=== PATIENT | female | born 1995 | race Caucasian/White ===

== ENCOUNTER 2018-07-09 19:11 | Inpatient (IN) | payer OTHER, SELFPAY ==
[2018-07-09] MEDS ORDERED: NA CHLORIDE 0.9% 1,000 ML ONE (19:55)
[2018-07-09 20:20] LABS: Protime INR 1.03
[2018-07-09 20:21] LABS: Absolute Lymphocytes (CBC) 2.1 K/uL (0.7-4.9); Absolute Monocytes 0.6 K/uL (0.1-1.3); Absolute Neutrophil 7.1 K/uL (1.8-8.0); Basophils % 0.7 % (0-1.3); Eosinophils % 1.5 % (0-4.4); Hematocrit 41.8 % (36.0-45.0); MPV 9.4 fL (7.6-11.3); Monocytes % 5.8 % (3.3-12.3); RBC Red Blood Cell Count 4.79 M/uL (3.86-4.86)
[2018-07-09 20:23] LABS: Barbiturates NEGATIVE (NEGATIVE); Benzodiazepines NEGATIVE (NEGATIVE); Cocaine NEGATIVE (NEGATIVE); METHAMPHETAM NEGATIVE (NEGATIVE); Methadone NEGATIVE (NEGATIVE); Opiates NEGATIVE (NEGATIVE); Phencyclidine NEGATIVE (NEGATIVE); THC Cannibis NEGATIVE (NEGATIVE)
[2018-07-09 20:31] LABS: ALT/SGPT 79 U/L (12-78); AST/SGOT 33 U/L (15-37); Alkaline Phosphatase 66 U/L (45-117); BUN Blood Urea Nitrogen 9 mg/dL (7-18); Bicarbonate 24 mmol/L (21-32); Bilirubin Direct 0.1 mg/dL (0-0.2); Bilirubin Total 0.4 mg/dL (0.2-1.0); Glucose Level 93 mg/dL (74-106); Lipase 103 U/L (73-393); Magnesium 2.3 mg/dL (1.8-2.4); NT PRO-BNP 98 pg/mL (<125); Protein, Total 7.3 g/dL (6.4-8.2); Sodium Level 139 mmol/L (136-145); Troponin (Emerg Dept Use Only) < 0.02 ng/mL (0.0-0.045)
[2018-07-09] MEDS ORDERED: ONDANSETRON 4 MG/2 ML VIAL ONE ×3 (20:33→23:08)
[2018-07-09] MEDS ORDERED: MORPHINE 4 MG/ML SYR ONE ×3 (20:33→23:08)
[2018-07-09 21:05] LABS: Urine Blood NEGATIVE (NEG); Urine Glucose NEGATIVE (NEG); Urine Protein NEGATIVE (NEG)
--- NOTE | 2018-07-09 22:57 | ER ---
Nurse's Notes [facility] Name: Ferny Zaragoza Age: 23 yrs Sex: Female : 1995 Arrival Date: 07/09/2018 Time: 19:13 Bed 24 Private MD: Diagnosis: Cholecystitis;Cholelithiasis;Abdominal tenderness;Obesity, unspecified Presentation: 07/09 19:25 Presenting complaint: Patient states: chest pain, back pain, epigastric pain with N/V ak1 X1 week. 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 pt stated they told her the pain was due to not taking her zoloft for 4 days. pt started back on zoloft yesterday. Transition of care: patient was not received from another setting of care. Onset of symptoms is unknown. Risk Assessment: Do you want to hurt yourself or someone else? Patient reports no desire to harm self or others. Initial Sepsis Screen: Does the patient meet any 2 criteria? No. Patient's initial sepsis screen is negative. Does the patient have a suspected source of infection? No. Patient's initial sepsis screen is negative. Care prior to arrival: None. 19:25 Method Of Arrival: Ambulatory ak1 19:25 Acuity: WILMAR 3 ak1 Triage Assessment: 19:27 General: Appears in no apparent distress. Behavior is calm, cooperative. Pain: ak1 Complains of pain in back and chest. EENT: No signs and/or symptoms were reported regarding the EENT system. Neuro: No deficits noted. Cardiovascular: Reports chest pain, nausea. Respiratory: No deficits noted. GI: Reports nausea, vomiting. : No signs and/or symptoms were reported regarding the genitourinary system. Derm: No signs and/or symptoms reported regarding the dermatologic system. Musculoskeletal: No signs and/or symptoms reported regarding the musculoskeletal system. 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 pt with IUD in place ak1 Historical: - Allergies: 19:27 No Known Allergies; ak1 - Home Meds: 19:27 Zoloft Oral [Active]; Hydroxyzine Oral [Active]; ak1 - PMHx: 19:27 Depression; ak1 - PSHx: 19:27 eye sx; ak1 - Immunization history:: Adult Immunizations unknown. - Social history:: Smoking status: Patient uses tobacco products, denies chronic smoking, but will smoke occasionally. - Ebola Screening: : No symptoms or risks identified at this time. - Family history:: not pertinent. Screenin:29 Abuse screen: Denies threats or abuse. Nutritional screening: No deficits noted. ea Tuberculosis screening: No symptoms or risk factors identified. Fall Risk Assessment: 19:25 General: Appears uncomfortable, Behavior is calm, cooperative, appropriate for age. ea Pain: Complains of pain in mid-sternal area, epigastric Pain radiates to thoracic area Pain currently is 8 out of 10 on a pain scale. Pain began last Monday. Neuro: Level of Consciousness is awake, alert, obeys commands, Oriented to person, place, time. Cardiovascular: Heart tones S1 S2 present Patient's skin is warm and dry. Respiratory: Reports shortness of breath Airway is patent Respiratory effort is even, unlabored, Respiratory pattern is regular, symmetrical, Breath sounds are clear bilaterally. Derm: Skin is pink, warm \T\ dry. 19:44 Reassessment: Patient appears in no apparent distress at this time. No changes from ak1 previously documented assessment. pt eating cheetos. 20:00 Reassessment: Patient and/or family updated on plan of care and expected duration. Pain ea level reassessed. Patient is alert, oriented x 3, equal unlabored respirations, skin warm/dry/pink. 21:58 Reassessment: Patient and/or family updated on plan of care and expected duration. Pain ea level reassessed. Patient is alert, oriented x 3, equal unlabored respirations, skin warm/dry/pink. Vital Signs: 19:27 BP 127 / 75; Pulse 74; Resp 16; Temp 98.8(O); Pulse Ox 96% on R/A; Weight 104.33 kg ak1 (R); Height 5 ft. 3 in. (160.02 cm); Pain 8/10; 20:50 BP 130 / 80; Pulse 80; Resp 18; Pulse Ox 99% ; ea 22:58 BP 100 / 69; Pulse 70; Resp 18; Pulse Ox 96% on R/A; ea 19:27 Body Mass Index 40.74 (104.33 kg, 160.02 cm) ak1 ED Course: 19:13 Patient arrived in ED. ag3 19:17 Fay Martin, BETH is Primary Nurse. ea 19:19 Saúl Mendez MD is Attending Physician. martina 19:25 Initial lab(s) drawn, by me. Inserted saline lock: 20 gauge in right antecubital area, aa1 using aseptic technique. Blood collected. 19:26 Triage completed. ak1 19:27 Arm band placed on Patient placed in an exam room, on a stretcher, on pulse oximetry, ak1 Patient notified of wait time Emesis basin given. 19:30 Patient has correct armband on for positive identification. Placed in gown. Bed in low ak1 position. Call light in reach. Side rails up X 1. gis database administrator on. Pulse ox on. NIBP on. 19:30 Patient has correct armband on for positive identification. Bed in low position. Call ea light in reach. Side rails up X 1. gis database administrator on. Pulse ox on. NIBP on. 19:30 Patient maintains SpO2 saturation greater than 95% on room air. ak1 20:19 Note: us delayed due to pt refuse (not feeling well). waiting to receive pain meds. lc3 20:45 Note: pt still refuse us. says she cant lay on her back (to have gb scan) due to not lc3 feeling well. i will try again in 30 mins/lc. 21:45 XRAY Chest (1 view) In Process Unspecified. EDMS 21:48 Ultrasound completed. Patient tolerated well. Patient moved back from ultrasound. lc3 22:11 US Abdomen Limited In Process Unspecified. EDMS 22:55 Joseph Lim MD is Hospitalizing Provider. martina 23:11 No provider procedures requiring assistance completed. Patient admitted, IV remains in ea place. Administered Medications: 20:00 Drug: NS 0.9% 1000 ml Route: IV; Rate: 1 bolus; Site: right antecubital; ea 20:29 Drug: morphine 4 mg Route: IVP; Site: right antecubital; ea 21:23 Follow up: Response: Pain is unchanged, physician notified ak1 20:30 Drug: Zofran 4 mg Route: IVP; Site: right antecubital; ea 21:23 Follow up: Response: Pain is unchanged, physician notified ak1 21:21 Drug: morphine 4 mg Route: IVP; Site: right antecubital; ak1 23:00 Follow up: Response: No adverse reaction ea 21:23 Drug: Zofran 4 mg Route: IVP; Site: right antecubital; ak1 22:00 Follow up: Response: No adverse reaction; Pain is decreased ea 23:00 Drug: morphine 4 mg Route: IVP; Site: right antecubital; ea 23:10 Drug: Zosyn 3.375 grams Route: IVPB; Infused Over: 60 mins; Site: right antecubital; ea Outcome: 22:56 Decision to Hospitalize by Provider. martina 23:12 Admitted to ER Hold. Please see [facility] for further documentation. ea 23:12 Condition: stable 23:12 Instructed on the need for admit, Demonstrated understanding of instructions. 23:50 Admitted to 07/10 11:05 Admitted to Med/surg accompanied by tech, via wheelchair, room 207, with chart, Report ed1 called to Ofe Condition: stable Discharge instructions given to patient, Instructed on the need for admit, Demonstrated understanding of instructions. 11:07 Patient left the ED. ed1 Signatures: Dispatcher [employer] EDMS Gayle Yoder RN RN aa1 Saúl Mendez MD MD cha Riggs, Erika, INSTALLMENT DEALER INSTALLMENT DEALER ed1 Maria E Lee RN RN ak1 Rosie Ricardo Elena RN Wilfredo Díaz ea, RN BETH Pascale Flynn ag3
--- NOTE | 2018-07-09 22:57 | EDPHYS ---
Physician Documentation [facility] Name: Ferny Zaragoza Age: 23 yrs Sex: Female : 1995 Arrival Date: 07/09/2018 Time: 19:13 Bed 24 Private MD: ED Physician Saúl Mendez HPI: 07/09 19:43 This 23 yrs old Female presents to ER via Ambulatory with complaints of Chest martina Tightness. 19:43 The patient or guardian reports chest pain that is located primarily in the substernal martina area. The pain radiates to Associated signs and symptoms: The patient has no apparent associated signs or symptoms. The chest pain is described as squeezing. Severity of pain: At its worst the pain was mild moderate in the emergency department the pain is unchanged. The patient has experienced a previous episode, last week. 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 pt with IUD in place ak1 Historical: - Allergies: 19:27 No Known Allergies; ak1 - Home Meds: 19:27 Zoloft Oral [Active]; Hydroxyzine Oral [Active]; ak1 - PMHx: 19:27 Depression; ak1 - PSHx: 19:27 eye sx; ak1 - Immunization history:: Adult Immunizations unknown. - Social history:: Smoking status: Patient uses tobacco products, denies chronic smoking, but will smoke occasionally. - Ebola Screening: : No symptoms or risks identified at this time. - Family history:: not pertinent. ROS: 19:43 Constitutional: Negative for fever, chills, and weight loss, Eyes: Negative for injury, martina pain, redness, and discharge, ENT: Negative for injury, pain, and discharge, Neck: Negative for injury, pain, and swelling, Respiratory: Negative for shortness of breath, cough, wheezing, and pleuritic chest pain, Back: Negative for injury and pain, : Negative for injury, bleeding, discharge, and swelling, MS/Extremity: Negative for injury and deformity, Skin: Negative for injury, rash, and discoloration, Neuro: Negative for headache, weakness, numbness, tingling, and seizure, Psych: Negative for depression, anxiety, suicide ideation, homicidal ideation, and hallucinations, Allergy/Immunology: Negative for hives, rash, and allergies, Endocrine: Negative for neck swelling, polydipsia, polyuria, polyphagia, and marked weight changes, Hematologic/Lymphatic: Negative for swollen nodes, abnormal bleeding, and unusual bruising. 19:43 Cardiovascular: Positive for 19:43 Abdomen/GI: Positive for abdominal pain, nausea and vomiting. Exam: 19:43 Constitutional: This is a well developed, well nourished patient who is awake, alert, martina and in no acute distress. Head/Face: Normocephalic, atraumatic. Eyes: Pupils equal round and reactive to light, extra-ocular motions intact. Lids and lashes normal. Conjunctiva and sclera are non-icteric and not injected. Cornea within normal limits. Periorbital areas with no swelling, redness, or edema. ENT: Nares patent. No nasal discharge, no septal abnormalities noted. Tympanic membranes are normal and external auditory canals are clear. Oropharynx with no redness, swelling, or masses, exudates, or evidence of obstruction, uvula midline. Mucous membranes moist. Neck: Trachea midline, no thyromegaly or masses palpated, and no cervical lymphadenopathy. Supple, full range of motion without nuchal rigidity, or vertebral point tenderness. No Meningismus. Chest/axilla: Normal chest wall appearance and motion. Nontender with no deformity. No lesions are appreciated. Cardiovascular: Regular rate and rhythm with a normal S1 and S2. No gallops, murmurs, or rubs. Normal PMI, no JVD. No pulse deficits. Respiratory: Lungs have equal breath sounds bilaterally, clear to auscultation and percussion. No rales, rhonchi or wheezes noted. No increased work of breathing, no retractions or nasal flaring. Back: No spinal tenderness. No costovertebral tenderness. Full range of motion. Female : Normal external genitalia. Skin: Warm, dry with normal turgor. Normal color with no rashes, no lesions, and no evidence of cellulitis. MS/ Extremity: Pulses equal, no cyanosis. Neurovascular intact. Full, normal range of motion. Neuro: Awake and alert, GCS 15, oriented to person, place, time, and situation. Cranial nerves II-XII grossly intact. Motor strength 5/5 in all extremities. Sensory grossly intact. Cerebellar exam normal. Normal gait. Psych: Awake, alert, with orientation to person, place and time. Behavior, mood, and affect are within normal limits. 19:43 Abdomen/GI: Inspection: distension, Bowel sounds: normal, Palpation: moderate abdominal tenderness, in the epigastric area, right upper quadrant and left upper quadrant, Liver: no appreciated palpable abnormalities, Hernia: not appreciated. 19:52 Musculoskeletal/extremity: DVT Exam: No signs of deep vein thrombosis. no pain, no martina swelling, no tenderness, negative Homans' sign noted on exam, no appreciated bluish discoloration, no erythema, no increased warmth. Vital Signs: 19:27 BP 127 / 75; Pulse 74; Resp 16; Temp 98.8(O); Pulse Ox 96% on R/A; Weight 104.33 kg ak1 (R); Height 5 ft. 3 in. (160.02 cm); Pain 8/10; 20:50 BP 130 / 80; Pulse 80; Resp 18; Pulse Ox 99% ; ea 22:58 BP 100 / 69; Pulse 70; Resp 18; Pulse Ox 96% on R/A; ea 19:27 Body Mass Index 40.74 (104.33 kg, 160.02 cm) ak MDM: 19:[address] [facility] 19:45 Data reviewed: vital signs, nurses notes, lab test result(s), EKG, radiologic studies, [facility] CT scan, plain films. 07/09 19:43 Order name: Basic Metabolic Panel; Complete Time: 20:[address] [facility] 07/09 19:43 Order name: CBC with Diff; Complete Time: 20:[address] [facility] 07/09 19:43 Order name: LFT's; Complete Time: 20:[address] [facility] 07/09 19:43 Order name: Magnesium; Complete Time: 20:[address] [facility] 07/09 19:43 Order name: NT PRO-BNP; Complete Time: 20:[address] [facility] 07/09 19:43 Order name: PT-INR; Complete Time: 20:[address] [facility] 07/09 19:43 Order name: Troponin (emerg Dept Use Only); Complete Time: 20:[address] [facility] 07/09 19:43 Order name: Urine Culture [facility] 07/09 19:43 Order name: UDS; Complete Time: 20:[address] [facility] 07/09 19:59 Order name: Urine Dipstick--Ancillary (enter results); Complete Time: 21:43 fl 07/09 20:00 Order name: Urine --Ancillary (enter results) fl 07/09 20:08 Order name: Lipase; Complete Time: 20:54 EDDE 07/09 23:01 Order name: Basic Metabolic Panel EDDE 07/09 19:43 Order name: XRAY Chest (1 view); Complete Time: 07:[address] [facility] 07/09 19:43 Order name: US Abdomen Limited; Complete Time: 07:[address] [facility] 07/09 23:01 Order name: Basic Metabolic Panel; Complete Time: 07:30 EDDE 07/09 23:01 Order name: CBC with Automated Diff EDMS 07/09 23:01 Order name: CBC with Automated Diff; Complete Time: 07:30 EDMS 07/09 23:01 Order name: Lipase EDMS 07/09 23:01 Order name: Lipase; Complete Time: 07:30 EDDE 07/09 23:01 Order name: Liver (Hepatic) Function EDMS 07/09 23:01 Order name: Liver (Hepatic) Function; Complete Time: 07:30 [facility] 07/10 10:13 Order name: MRI EDDE 07/09 19:43 Order name: EKG; Complete Time: 19:[address] [facility] 07/09 19:43 Order name: Cardiac monitoring; Complete Time: 19:[address] [facility] 07/09 19:43 Order name: EKG - Nurse/Tech; Complete Time: 19:[address] [facility] 07/09 19:43 Order name: IV Saline Lock; Complete Time: 19:[address] [facility] 07/09 19:43 Order name: Labs collected and sent; Complete Time: 19:[address] [facility] 07/09 19:43 Order name: O2 Per Protocol; Complete Time: 19:[address] [facility] 07/09 19:43 Order name: O2 Sat Monitoring; Complete Time: 19:[address] [facility] 07/09 19:43 Order name: Urine Test (obtain specimen); Complete Time: 20:[address] [facility] 07/09 23:01 Order name: NPO EDMS Administered Medications: 20:00 Drug: NS 0.9% 1000 ml Route: IV; Rate: 1 bolus; Site: right antecubital; ea 20:29 Drug: morphine 4 mg Route: IVP; Site: right antecubital; ea 21:23 Follow up: Response: Pain is unchanged, physician notified ak1 20:30 Drug: Zofran 4 mg Route: IVP; Site: right antecubital; ea 21:23 Follow up: Response: Pain is unchanged, physician notified ak1 21:21 Drug: morphine 4 mg Route: IVP; Site: right antecubital; ak1 23:00 Follow up: Response: No adverse reaction ea 21:23 Drug: Zofran 4 mg Route: IVP; Site: right antecubital; ak1 22:00 Follow up: Response: No adverse reaction; Pain is decreased ea 23:00 Drug: morphine 4 mg Route: IVP; Site: right antecubital; ea 23:10 Drug: Zosyn 3.375 grams Route: IVPB; Infused Over: 60 mins; Site: right antecubital; ea Disposition: 07/09/18 22:56 Hospitalization ordered by Joseph Lim for Observation. Preliminary diagnosis are Cholecystitis, Cholelithiasis, Abdominal tenderness, Obesity, unspecified. - Bed requested for Telemetry/MedSurg (observation). - Status is Observation. ed1 - Condition is Stable. - Problem is new. - Symptoms have improved. UTI on Admission? No Signatures: Dispatcher [employer] EDDE Trice De Los Santos RN RN mw Woody, Diana, RN RN dw Anderson, Corey, MD MD cha Riggs, Erika, SEMIAUTOMATIC TAPER OPERATOR SEMIAUTOMATIC TAPER OPERATOR ed1 Maria E Lee RN BETH ak Fay Martin RN RN ea Corrections: (The following items were deleted from the chart) 20:08 19:45 LIPASE+C.LAB.BRZ ordered. [facility] EDMS 22:59 22:56 Hospitalization Ordered by Joseph Lim MD for Observation. Preliminary diagnosis is Cholecystitis; Cholelithiasis; Abdominal tenderness. Bed requested for Telemetry/MedSurg (observation). Status is Observation. Condition is Stable. Problem is new. Symptoms have improved. UTI on Admission? No. martina 23:01 22:59 07/09/2018 22:56 Hospitalization Ordered by Joseph Lim MD for Observation. martina Preliminary diagnosis is Cholecystitis; Cholelithiasis; Abdominal tenderness. Bed requested for [facility] ER HOLD. Status is Observation. Condition is Stable. Problem is new. Symptoms have improved. UTI on Admission? No. juan 07/10 10:21 12 23:01 07/09/2018 22:56 Hospitalization Ordered by Joseph Lim MD for dw Observation. Preliminary diagnosis is Cholecystitis; Cholelithiasis; Abdominal tenderness; Obesity, unspecified. Bed requested for Telemetry/MedSurg (observation). Status is Observation. Condition is Stable. Problem is new. Symptoms have improved. UTI on Admission? No. martina 07/10 11:07 10:21 07/09/2018 22:56 Hospitalization Ordered by Joseph Lim MD for Observation. ed1 Preliminary diagnosis is Cholecystitis; Cholelithiasis; Abdominal tenderness; Obesity, unspecified. Bed requested for Telemetry/MedSurg (observation). Status is Observation. Condition is Stable. Problem is new. Symptoms have improved. UTI on Admission? No. dw
[2018-07-09] MEDS: D5 0.45 NS 1,000 ML IV SCH (23:00)
[2018-07-09] MEDS ORDERED: PIPER/TAZO/NS 3.375gm 3.375 GM/100 ML BAG ONE (23:08)
[2018-07-09 23:50] VITALS: BMI 40.7
[2018-07-10] MEDS ORDERED: D5 0.45 NS 1,000 ML IV ONE ×2 (00:26→07:51)
[2018-07-10] MEDS: ONDANSETRON 4 MG/2 ML VIAL IV PRN ×4 (01:05→21:51)
[2018-07-10] MEDS ORDERED: ONDANSETRON 4 MG/2 ML VIAL ONE ×2 (01:09→08:12)
[2018-07-10] MEDS ORDERED: MORPHINE 4 MG/ML SYR ONE (02:47)
[2018-07-10] MEDS: MORPHINE 4 MG/ML SYR IV PRN ×3 (02:51→21:45)
--- NOTE | 2018-07-10 05:46 | EKG ---
Test Date: 2018-07-09 Test Time: 19:21:31 Chronic Disease Manager: PEREZ MEASUREMENT RESULTS: Intervals: Rate: 77 DE: 140 QRSD: 92 QT: 376 QTc: 425 [place]: P: 37 DE: 140 QRS: -5 T: 33 INTERPRETIVE STATEMENTS: Normal sinus rhythm with sinus arrhythmia Normal ECG No previous ECG available for comparison Electronically Signed On 07-10-18 05:45:37 REPAIR OPERATOR by Shravan Garcia
[2018-07-10] MEDS: PIPER/TAZO/NS 3.375gm 3.375 GM/100 ML BAG IVPB SCH ×3 (06:00→18:40)
[2018-07-10 06:19] LABS: Absolute Lymphocytes (CBC) 1.2 K/uL (0.7-4.9); Absolute Monocytes 0.4 K/uL (0.1-1.3); Absolute Neutrophil 4.9 K/uL (1.8-8.0); Basophils % 0.4 % (0-1.3); Eosinophils % 0.7 % (0-4.4); Hematocrit 36.7 % (36.0-45.0); Lymphocytes % 17.7 % (15.3-44.8); MPV 9.4 fL (7.6-11.3); Monocytes % 5.9 % (3.3-12.3); RBC Red Blood Cell Count 4.23 M/uL (3.86-4.86)
[2018-07-10 06:26] LABS: ALT/SGPT 164 U/L (12-78); AST/SGOT 132 U/L (15-37); Albumin 3.5 g/dL (3.4-5.0); Alkaline Phosphatase 99 U/L (45-117); BUN Blood Urea Nitrogen 7 mg/dL (7-18); Bicarbonate 28 mmol/L (21-32); Bilirubin Direct 0.4 mg/dL (0-0.2); Bilirubin Total 0.8 mg/dL (0.2-1.0); Glucose Level 120 mg/dL (74-106); Lipase 56 U/L (73-393); Potassium 3.9 mmol/L (3.5-5.1); Protein, Total 6.6 g/dL (6.4-8.2); Sodium Level 138 mmol/L (136-145)
[2018-07-10] MEDS ORDERED: PIPER/TAZO/NS 3.375gm 3.375 GM/100 ML BAG ONE (06:51)
[2018-07-10] MEDS: D5 0.45 NS 1,000 ML IV SCH ×4 (07:00→23:00)
--- NOTE | 2018-07-10 07:16 | RAD REPORT ---
EXAM DESCRIPTION: RAD - Chest Single View - 07/09/2018 9:45 pm CLINICAL HISTORY: Back pain, chest pain COMPARISON: December 2011 TECHNIQUE: AP portable chest image was obtained 2115 hours . FINDINGS: Lungs are clear. Heart and vasculature are normal. No measurable pleural effusion and no p neumothorax. No acute bony abnormality seen. No acute aortic findings suspected. IMPRESSION: No acute cardiopulmonary process. No suspicious interval change.
--- NOTE | 2018-07-10 07:16 | RAD REPORT ---
EXAM DESCRIPTION: US - Abdomen Exam Limited - 07/09/2018 10:11 pm CLINICAL HISTORY: Abdominal pain, right upper quadrant pain Preliminary findings provided at the time of the study. COMPARISON: None. FINDINGS: Gallbladder is distended but not grossly dilated. A single large 2.4 centimeter mobile gal lstone is identified. Gallbladder wall is upper normal to slightly thickened. No pericholecystic flui d seen. Patient did express pain symptoms with transducer pressure over the right upper quadrant. No duct stone identifiable. No intrahepatic dilatation seen. Common bile duct is upper normal at 7 to 8 mm IMPRESSION: Distended gallbladder with single mobile 2.4 cm gallstone. Gallbladder wall is upper normal to slightly thickened without pericholecystic fluid. Upper normal biliary tree without duct stone identifiable.
[2018-07-10] MEDS ORDERED: NA CHLORIDE 0.9% 1,000 ML IV ONE (07:44)
[2018-07-10] MEDS ORDERED: NA CHLORIDE 0.9% 1,000 ML ONE (07:50)
[2018-07-10] MEDS: ACETAMINOPHEN 500 MG TAB PO PRN ×2 (08:10→15:38)
[2018-07-10] MEDS ORDERED: ACETAMINOPHEN 325 MG TABLET ONE (08:11)
[2018-07-10] MEDS ORDERED: FAMOTIDINE 20 MG/2 ML VIAL IV ONE (08:11)
[2018-07-10] MEDS: FAMOTIDINE 20 MG/2 ML VIAL IV SCH ×2 (08:11→20:11)
--- NOTE | 2018-07-10 10:11 | RAD REPORT ---
EXAM DESCRIPTION: MRI - Cholangiogram - 07/10/2018 9:38 am CLINICAL HISTORY: Cholelithiasis, abdominal pain COMPARISON: Gallbladder ultrasound same date TECHNIQUE: Axial and coronal heavily T2 weighted sequences were obtained. Coronal T2 HASTE fat satur ation static and coronal multiplane reconstruction imaging generated and reviewed. Horizontal and raheem tical axis rotational views obtained using maximum intensity projection (MIP) protocol. FINDINGS: Gallbladder is distended. There may be some pericholecystic fluid present. There is motion that limits full gallbladder assessment. Prior ultrasound demonstrated a large mobile gallstone. On MRCP imaging there is an additional gallstone 2.2 cm in size that is fixed at the neck of the gallbla dder. No biliary tree dilatation or duct stone seen. The distended gallbladder and neck gallstone create ex trinsic compression on the common hepatic duct. IMPRESSION: MRCP imaging demonstrates an additional gallstone not seen at earlier sonography. This 2 .2 centimeter stone is fixed at the neck. There is extrinsic impression on the common hepatic duct due to the distended gallbladder and neck st one. No biliary tree dilatation or duct stone present.
[2018-07-10] MEDS ORDERED: KETOROLAC 30 MG/ML INJ IV ONE (10:21)
[2018-07-10] MEDS ORDERED: KETOROLAC 30 MG/ML INJ ONE (10:34)
[2018-07-10] MEDS ORDERED: PIPER/TAZO/NS 3.375gm 3.375 GM/100 ML BAG IVPB SCH (17:00)
--- NOTE | 2018-07-10 23:51 | HP ---
Date of Admission: 07/09/2018 Consultants: GI, Dr. Galo; General Surgery, Dr. Lim. Chief Complaint: Right upper quadrant abdominal pain. History Of Present Illness: The patient is a 23-year-old female with past medical history of general ized anxiety disorder, who was in her usual state of health until the day prior to admission when the patient had sudden onset of abdominal pain which was in the epigastric and right upper quadrant area , radiating to her back, associated with some nausea. No vomiting. The patient denies any shortness of breath, chest pain, fever, chills, or any unusual foods. The patient's symptoms are worse with f ried, fatty foods. The patient came into the ER for further evaluation. Upon arrival, her workup re veals a normal WBC count. The patient's urine drug screen was negative. UA showed negative pregnanc y test. Imaging studies including ultrasound of the abdomen showed gallstones and distended gallblad dixon with mobile 2.4-cm gallstone, common bile duct was upper normal to 78 mm, upper normal biliary tr ee, biliary tree without duct stone identifiable. The patient was then referred for admission. When seen in the ER, the patient was awake, alert, and oriented x3, in some mild pain. Past Medical History: Generalized anxiety disorder and depression. Past Surgical History: Eye surgery secondary to trauma at 2 years of age, x3. Allergies: NO KNOWN DRUG ALLERGIES. Medications: Zoloft and hydroxyzine. Social History: The patient smokes cigarettes occasionally. No alcohol use or illicit drug use. Family History: The patient denies any history of gallbladder disease in her family. Review of Systems: An 11-point system reviewed, negative except as per HPI. Physical Examination: Vital Signs: Blood pressure 127/75, pulse 74, respirations 16, temperature 98.8, and O2 96% on room air. General: Awake, alert, and oriented x3, in mild distress. Morbidly obese female. HEENT: Normocephalic, atraumatic. PERRLA. EOMI. Moist mucous membranes. Oropharynx is clear. Co njunctivae anicteric. Neck: Supple. No JVD. Trachea midline. CV: S1, S2. Regular rate and rhythm. No murmurs or gallops. Peripheral pulses present. Respiratory: Clear to auscultation bilaterally. No wheezing or stridor or use of accessory muscles. Gastrointestinal: Abdomen is soft. Tenderness to palpation of the right upper quadrant. No rebound or guarding. Bowel sounds positive. No distention. Extremities: No clubbing, cyanosis, or edema. No calf tenderness. Neuro: Cranial nerves 2 through 12 intact grossly. No focal neurological deficit. Speech is normal . Strength is 5/5 in bilateral upper and lower extremities. Sensation is intact to light touch. Skin: No rashes. Normal skin turgor. Psych: Mood is somewhat anxious. Affect is congruent with mood. Insight and judgment are good. Laboratory Data: UA is negative. test is also negative. UDS is negative. Sodium 138, po tassium 3.9, chloride 106, CO2 28, BUN 7, creatinine 0.6, glucose 120, and calcium 8.3. AST 132, ALT 164, total bilirubin 0.8, alkaline phosphatase 99, and lipase 56. INR 1.03. WBC 6.6, H and H 12.4 and 36.7, platelets 199, and neutrophils 75%. MRCP shows additional gallstones not seen at earlier s onography. This 2.2-cm stone is fixed at the neck. There is extrinsic compression on the common hep atic duct due to the distended gallbladder neck stone, no biliary tree dilatation or duct stone prese nt. Abdominal ultrasound shows distended gallbladder with single mobile 2.4-cm gallstone, gallbladde r wall upper normal to slightly thickened without pericholecystic fluid, and upper normal biliary sonia e without duct stone identifiable. Assessment And Plan: A 23-year-old female with: 1.Right upper quadrant abdominal pain, likely secondary to gallstones. Continue with pain control, likely secondary to cholelithiasis. MRCP is negative. 2.Cholelithiasis without obstruction. We will continue with current treatment. MRCP does not show any ductal stones. There is a fixed stone at the neck. Appreciate Dr. Galo's input. The patient will likely need a cholecystectomy. I will reach out to Dr. Lim. This will likely be done in t he a.m. 3.Morbid obesity, counseled. 4.Generalized anxiety disorder, stable. 5.Major depressive disorder, on SSRI, stable. Admit the patient to Med-Surg, place as observation. Anticipate surgery in the a.m. Of note, the concepcion wade was initially admitted to the Surgery Service, but due to her condition, she was switched over to The Hospitalist Service and was referred for admission this morning. ANEUDY Voice ID: [id number]
[2018-07-11] MEDS ORDERED: KETOROLAC 30 MG/ML INJ IV ONE (00:10)
[2018-07-11] MEDS: PIPER/TAZO/NS 3.375gm 3.375 GM/100 ML BAG IVPB SCH ×3 (00:31→16:38)
[2018-07-11] MEDS: D5 0.45 NS 1,000 ML IV SCH ×3 (06:37→16:38)
[2018-07-11] MEDS: MORPHINE 4 MG/ML SYR IV PRN (06:56)
[2018-07-11] MEDS: FAMOTIDINE 20 MG/2 ML VIAL IV SCH ×2 (08:27→20:32)
[2018-07-11] MEDS ORDERED: PROPOFOL 200 MG/20 ML VIAL IV ONE (08:38)
[2018-07-11] MEDS ORDERED: FENTANYL CITR 100 MCG/2 ML ONE ×2 (08:38→10:13)
[2018-07-11] MEDS ORDERED: MIDAZOLAM HCL 2 MG/2 ML INJ ONE (08:38)
[2018-07-11] MEDS ORDERED: ROCURONIUM 50 MG/5 ML VIAL IV ONE (08:39)
[2018-07-11] MEDS ORDERED: LIDOCAINE 1% MPF 5 ML VIAL ONE (08:39)
[2018-07-11] MEDS ORDERED: Ringers Lactate 1,000 ML IV ONE ×2 (09:27→11:51)
[2018-07-11] MEDS ORDERED: KETOROLAC 30 MG/ML INJ ONE (10:10)
[2018-07-11] MEDS ORDERED: DEXAMETHASONE 10 MG/ML VIAL ONE (10:10)
[2018-07-11] MEDS ORDERED: GLYCOPYRROLATE 0.2 MG/ML SYR ONE (10:10)
[2018-07-11] MEDS ORDERED: NEOSTIGMINE 1 MG/ML -5 ML SYRINGE ONE (10:10)
[2018-07-11] MEDS ORDERED: ONDANSETRON 4 MG/2 ML VIAL ONE (10:11)
--- NOTE | 2018-07-11 10:53 | P.BOP ---
Preoperative diagnosis: acute cholecystitis, symptomatic cholelithiasis, morbid obesity Postoperative diagnosis: same Primary procedure: Laparoscopic cholecystectomy Estimated blood loss: <30cc Specimen: gb Findings: acute cholecystitis, GB wall thickening and distended. Anesthesia: General Complications: None Transferred to: Recovery Room Condition: Good
[2018-07-11] MEDS ORDERED: MORPHINE 4 MG/ML SYR ONE (11:21)
--- NOTE | 2018-07-11 11:49 | CON ---
Date of Consultation: 07/10/2018 This patient was seen in the ER. History Of Present Illness: This is the case of a 23-year-old patient, comes with at least a day his tory of epigastric upper quadrant pain radiating to the back associated with nausea and vomiting. Th e patient states this happened after she ate some fried food. Apparently, she went to another ER rec ently in another institution. They sent her home with no medications and the patient was sent home a nd then the patient comes to our ER complaining of the same symptoms. Workup revealed a possible gal lbladder and a surgical consult was obtained. Past Medical History: Anxiety and depression. Past Surgical History: Include x3 and eye surgery when she was a baby. Allergies: NONE. Medications: Zoloft. Social History: She smokes occasionally. She does not drink alcohol. Family History: Noncontributory. Review of Systems: Eleven points, otherwise unremarkable. Physical Examination: General: The patient is awake and alert. HEENT: Pupils are equal and reactive, anicteric. Neck: Supple. Chest: Clear. Bilateral breath sounds. Abdomen: Epigastric or upper quadrant tenderness with Phan sign positive. The rest of abdomen is soft and depressible. Breasts: Deferred. Pelvic: Deferred. Rectal: Deferred. Extremities: Good capillary refill. Laboratory Data: Blood work shows WBC count of 10.9, hemoglobin 13.9, platelets of 222, potassium is 4.0, total bilirubin of 0.4, direct bilirubin of 0.1. Alkaline phosphorus of 66. Lipase 103. UA n egative. Abdominal ultrasound interpreted by Dr. Glass as a gallstone, thickening of the gallbladd er, borderline common bile duct size. Assessment And Plan: A 23-year-old patient with symptomatic cholelithiasis, acute cholecystitis. In itially comes in with anxiety and borderline biliary system. The patient will be n.p.o. We are david g to get an MRCP. If the MRCP is positive, GI may have to do an ERCP. If not, the patient will be f ully explained the options also of laparoscopic, possible open cholecystectomy with benefits, alterna tives, and risks, including, but not limited to infection, bleeding, damage to adjacent structures, a nesthesia complication, recurrence, SD, and even . She also understands this may not relieve an y symptoms. She may need more than one surgical intervention. She understands the importance also o f losing weight, look for professional help to do so. She understood. She will be admitted to the [facility]. RADHA/ASHLEY Voice ID: [id number] Report ID: [id number]
--- NOTE | 2018-07-11 13:40 | PN ---
Date of Progress Note: 07/11/2018 Subjective: Patient seen and examined. Chart reviewed and case discussed with RN and Dr. Lim. The patient went down for a laparoscopic cholecystectomy and tolerated the procedure well. She did have significant amount of inflammation and distention of the gallbladder, which was fairly enlarged. Medications: List reviewed. Physical Examination: Vital Signs: Temperature 98.4, heart rate 99, blood pressure 100/65, respirations 20, O2 100% on susannah m air. General: Awake, alert, oriented x3. Has some mild distress, ill-appearing, morbidly obese female. CV: S1, S2. Regular rate and rhythm. Peripheral pulses present. Respiratory: Moving air well bilaterally. No wheezing or stridor. No use of accessory muscles. Gastrointestinal: Abdomen is soft. Tenderness to palpation in the right upper quadrant. Bowel soun ds positive. No guarding or rigidity. Extremities: No clubbing, cyanosis, or edema. Neurologic: Nonfocal. Laboratory Data: Labs pending. Urine culture showing mixed izzy. Assessment: A 23-year-old female with: 1.Right upper quadrant abdominal pain secondary to acute cholecystitis with cholelithiasis with chol elithiasis. MRCP negative. The patient going for laparoscopic cholecystectomy today. 2.Acute cholecystitis with cholelithiasis without obstruction. Laparoscopic cholecystectomy today. Appreciate Dr. Lim' input. We will continue antibiotics and pain control. 3.Morbid obesity. BMI greater than 40. Counseled. 4.Generalized anxiety disorder, stable. 5.Major depressive disorder on SSRI, stable. Plan: We will continue to observe the patient. Pain control. Continue with IV antibiotics. Length Of Stay: Greater than 2 midnights. Disposition: Likely discharge in the next 24 to 48 hours depending on clinical response. /ASHLEY Voice ID: [id number] Report ID: [id number]
[2018-07-11] MEDS: HYDROCODONE/APAP 7.5/325 MG TAB PO PRN ×2 (16:37→20:32)
[2018-07-11] MEDS ORDERED: PIPER/TAZO/NS 3.375gm 3.375 GM/100 ML BAG IVPB SCH (17:30)
[2018-07-12] MEDS: PIPER/TAZO/NS 3.375gm 3.375 GM/100 ML BAG IVPB SCH ×2 (00:58→08:16)
[2018-07-12] MEDS: HYDROCODONE/APAP 7.5/325 MG TAB PO PRN ×3 (00:58→11:04)
[2018-07-12] MEDS: D5 0.45 NS 1,000 ML IV SCH (05:55)
[2018-07-12 06:20] LABS: Absolute Lymphocytes (CBC) 1.7 K/uL (0.7-4.9); Absolute Monocytes 0.8 K/uL (0.1-1.3); Absolute Neutrophil 5.5 K/uL (1.8-8.0); Basophils % 0.4 % (0-1.3); Eosinophils % 0.4 % (0-4.4); Hematocrit 32.6 % (36.0-45.0); Lymphocytes % 20.6 % (15.3-44.8); MPV 9.3 fL (7.6-11.3); Monocytes % 9.8 % (3.3-12.3); RBC Red Blood Cell Count 3.77 M/uL (3.86-4.86)
[2018-07-12 06:37] LABS: ALT/SGPT 69 U/L (12-78); AST/SGOT 19 U/L (15-37); Albumin 2.9 g/dL (3.4-5.0); Alkaline Phosphatase 82 U/L (45-117); BUN Blood Urea Nitrogen 3 mg/dL (7-18); Bicarbonate 25 mmol/L (21-32); Bilirubin Total 0.6 mg/dL (0.2-1.0); Glucose Level 105 mg/dL (74-106); Potassium 3.5 mmol/L (3.5-5.1); Protein, Total 6.2 g/dL (6.4-8.2); Sodium Level 140 mmol/L (136-145)
[2018-07-12] MEDS: FAMOTIDINE 20 MG/2 ML VIAL IV SCH (08:17)
[2018-07-12 08:51] VITALS: BP 94/56; TEMP 97.4
--- NOTE | 2018-07-12 12:18 | P.PN ---
Subjective Date of Service: 07/12/18 Chief Complaint: SHARON pain, N/V, cholelithiasis / cholecystitis Subjective: Improving (Feels better. Sitting in bed tolerating solid food. No complaints.) Review of Systems Unremarkable Physical Examination - Vital Signs Temperature: 97.4 F Blood Pressure: 94/56 Pulse: 85 Respirations: 18 Pulse Ox (%): 95 - Physical Exam General: Alert, In no apparent distress, Oriented x3, Cooperative HEENT: Atraumatic, Normocephalic, PERRLA, EOMI, Sclerae nonicteric Neck: Supple Respiratory: Normal air movement Cardiovascular: Normal pulses Gastrointestinal: No rebound, No guarding, Tenderness (post-op tenderness) Neurological: Normal speech, Normal strength at 5/5 x4 extr - Studies Microbiology Data (last 24 hrs): 07/09/18 19:50 Clean Catch Urine [place] Count - Final BETWEEN 10,000 & 100,000 CFU/ML 07/09/18 19:50 Clean Catch Urine - Final Assessment And Plan - Current Problems (Diagnosis) (1) Epigastric abdominal pain Current Visit: Yes Status: Acute Comment: Improved s/p lap bessie (2) Nausea & vomiting Current Visit: Yes Status: Acute (3) Cholelithiasis with cholecystitis Current Visit: Yes Status: Acute - Plan REC: 1) diet as per surgery 2) GI clinic f/u prn
--- NOTE | 2018-07-12 12:56 | P.PN ---
Subjective Date of Service: 07/12/18 Chief Complaint: SHARON pain, N/V, cholelithiasis / cholecystitis Subjective: Tolerating diet, Ambulating, Improving Review of Systems 10-point ROS is otherwise unremarkable Physical Examination - Vital Signs Temperature: 97.4 F Blood Pressure: 94/56 Pulse: 85 Respirations: 18 Pulse Ox (%): 95 - Physical Exam General: Alert, Oriented x3, Cooperative HEENT: PERRLA, EOMI, Sclerae nonicteric Neck: Supple Gastrointestinal: Soft and benign Neurological: Normal speech - Studies Microbiology Data (last 24 hrs): 07/09/18 19:50 Clean Catch Urine [place] Count - Final BETWEEN 10,000 & 100,000 CFU/ML 07/09/18 19:50 Clean Catch Urine - Final Assessment And Plan - Plan SEE orders d?h f/u 1 week
[2018-07-12 13:21] VITALS: O2SAT 95
--- NOTE | 2018-07-13 07:42 | DS ---
Date of Discharge: 07/12/2018 Consultants: Dr. Lim with General Surgery, Dr. Galo with GI. Procedures: On 06/11/2018, laparoscopic cholecystectomy. Pathology shows reactive pericystic duct l ymph node, acute on chronic cholecystitis, cholelithiasis. Discharge Diagnoses: 1.Acute cholecystitis with cholelithiasis, without obstruction, status post laparoscopic cholecystec kiara. 2.Right upper quadrant abdominal pain, resolved, secondary to above. 3.Morbid obesity. Body mass index 40.7. 4.Generalized anxiety disorder, stable. 5.Major depressive disorder, in remission on selective serotonin reuptake inhibitors, stable. 6.Elevated liver enzymes, secondary to acute cholecystitis, normalized. Hospital Course: The patient is a 23-year-old female with past medical history of generalized anxiet y, depression, morbid obesity, who comes in with right upper quadrant abdominal pain. The patient wa s found to have acute cholecystitis. She did have some elevation in her liver enzymes. She was star rm on IV antibiotic and pain medications. Dr. Lim and Dr. Galo, with General Surgery and GI respectively, were consulted. MRCP was done to rule out any duct stone, did not show any duct in the common bile duct. The patient did not require ERCP. She was taken for cholecystectomy by Dr. Leny tariq. The patient did well postoperatively. She was able to tolerate her diet. Her pain had resolve d. She was instructed on fat-soluble vitamin supplementation and changes in her dietary habits after cholecystectomy; she voiced understanding. The patient was then cleared for discharge from consulta nt's standpoint. She was tolerating her diet and pain was well controlled. She was able to ambulate without any difficulty. The patient was then discharged home in stable condition. Activity: As tolerated. No operating heavy machinery or driving while on narcotics. No lifting mor e than 10 pounds. Diet: [place] diet, calorie-restricted diet. No fried or fatty foods. Supplement with fat-soluble vi tamins; K, A, D, and E. Wound care instructions per Surgery. Followup: With surgeon, Dr. Lim, in 7-10 days. Medications: As per medication reconciliation list. Finish off the course of Augmentin. Physical Examination: General: Awake, alert, oriented, no acute distress, morbidly obese female. CV: S1, S2. No murmurs. Respiratory: Moving air well bilaterally. No wheezing. Gastrointestinal: Abdomen is soft. Mild tenderness to palpation around the incision site. Otherwis e, nondistended. Positive bowel sounds. Extremities: No clubbing, cyanosis, or edema. Neurologic: Nonfocal. Total Time Spent Discharging The Patient: 39 minutes. /ASHLEY Voice ID: [id number] Report ID: [id number]
--- NOTE | 2018-08-27 22:51 | OP ---
Date of Procedure: 07/11/2018 Surgeon: Joseph Lim MD Preoperative Diagnoses: Acute cholecystitis, symptomatic cholelithiasis, morbid obesity. Postoperative Diagnoses: Acute cholecystitis, symptomatic cholelithiasis, morbid obesity. Procedure: Laparoscopic cholecystectomy. Estimated Blood Loss: Less than 20 cc. Specimen: Gallbladder. Findings: Acute cholecystitis, gallbladder wall thickening and distended. Anesthesia: General plus local. Indications: This is a case of a patient who comes to us with above diagnoses. Fully explained the benefits, alternatives, and risks of laparoscopic, possible open cholecystectomy, which include, but not limited to infection, bleeding, damage to adjacent structures, anesthesia complication, choledoch olithiasis, bile leak, pancreatitis, MT, and even . She also understands this may not relieve a ny symptoms. She might need more than one surgical intervention. She understood, signed a consent. Description Of Procedure: The patient was brought to the operating room, placed in supine position. Anesthesia was done without complication. Abdominal area was prepped and draped in usual sterile fa shion. Marcaine 0.5% was injected for local anesthetic, followed by sharp incision of the skin in th e infraumbilical region. Incision was carried down to fascia, which was opened under direct vision. Peritoneum was encountered, opened under direct vision. Vicryl #1 was placed inside the fascia. Dhaliwal sson trocar was carefully introduced. No bleeding was obtained. I placed 2 more trocars, 5 mm each one of them, in the epigastric, right upper quadrant under direct visualization. This allowed me to put a grasper in the fundus of the gallbladder. After obtaining pneumoperitoneum, another grasper in the infundibulum to retract the gallbladder in the inferolateral fashion exposing the triangle of Ca lot, obtaining a critical view of safety. The cystic duct and cystic artery were clearly isolated f ree circumferentially, and a connection between those and the gallbladder was clearly identified. I proceeded to ligate those by using at least 3 clips proximal, 1 clip distal, ligation in the middle. The same was done with the cystic artery. No bile leak. No bleeding. The gallbladder was removed from liver using Bovie cauterizer and removed from abdominal cavity using an EndoCatch through the um bilical incision. The area was inspected once again. No bile leak. No bleeding. At that moment, I proceeded to remove the trocars under direct vision. Deflated the pneumoperitoneum. Closed the fas ruth with #1 Vicryl. Irrigated subcutaneous tissue, closed that with 3-0 chromic, and skin was approx imated. Sponge count and instrument counts were correct. The patient tolerated the procedure well. The patient was sent to recovery in stable condition. RADHA/ASHLEY Voice ID: [id number] Report ID: [id number]
== END 2018-07-12 13:07 | disposition home or self-care (01) | DRG 418 ==
LOC: ER 19:11 → OBSVTOIN 22:57 → ERHOLD 22:57 → 2ND 07-10 10:55
PROVIDERS: ADMIT Family Medicine; ATTEND Family Medicine
PROC: 0FT44ZZ Resection of Gallbladder, Percutaneous Endoscopic Approach (ICD-10-PCS; principal; 2018-07-11 11:00)
DX: K80.00 Calculus of gallbladder with acute cholecystitis without obstruction (principal); Z68.41 Body mass index [BMI] 40.0-44.9, adult; E66.01 Morbid (severe) obesity due to excess calories; F41.1 Generalized anxiety disorder; F32.9 Major depressive disorder, single episode, unspecified; R94.5 Abnormal results of liver function studies; F17.210 Nicotine dependence, cigarettes, uncomplicated
CPT/HCPCS: 36415; 71045; 74181; 76705; 80048; 80053; 80076; 80307; 81003; 81025; 83690; 83735; 83880; 84484; 85025; 85610; 87086; 87088; 88304; 93005; 96374; 96375; 99285; J1100; J2250; J2405; J2543; J2704; J2710; J3010; J7030

== ENCOUNTER 2018-07-13 12:59 | Emergency (ER) | payer SELFPAY ==
[2012-01-23 02:38] VITALS: BP 102/56
--- OUTSIDE RECORDS SUMMARY | 2018-07-13 13:02 | XMS REPORT ---
:1995 [facility] Address [address] [place] [address] [place] [id number] Care Team Providers Name Role Phone Unavailable Unavailable Unavailable Problems This patient has no known problems. Allergies, Adverse Reactions, Alerts This patient has no known allergies or adverse reactions. Medications This patient has no known medications.
--- NOTE | 2018-07-13 15:16 | ER ---
Nurse's Notes [facility] Name: Ferny Zaragoza Age: 23 yrs Sex: Female : 1995 Arrival Date: 07/13/2018 Time: 13:02 Bed 6 Private MD: Fatimah Walker K Diagnosis: Anxiety disorder, unspecified;Major depressive disorder, recurrent-histiory Presentation: 07/13 13:11 Presenting complaint: Patient states: anxiety started yesterday. Pt recently got sv switched from Zoloft to [place]. Pt recently had a bessie 3 days ago and is c/o chest pain. Transition of care: patient was not received from another setting of care. Onset of symptoms was July 12, 2018. Care prior to arrival: None. 13:11 Method Of Arrival: Ambulatory sv 13:11 Acuity: WILMAR 3 sv Triage Assessment: 13:11 General: Appears in no apparent distress. comfortable, Behavior is calm, cooperative, sv appropriate for age. Neuro: Level of Consciousness is awake, alert, obeys commands, Oriented to person, place, time, situation, Moves all extremities. Full function Gait is steady, Speech is normal. Respiratory: Respiratory effort is even, unlabored, Respiratory pattern is regular, symmetrical. Historical: - Allergies: 13:12 No Known Allergies; sv - PMHx: 13:12 Depression; sv - PSHx: 13:12 eye sx; sv - Immunization history:: Flu vaccine is not up to date. - Social history:: Smoking status: Patient uses tobacco products, denies chronic smoking, but will smoke occasionally. - Ebola Screening: : No symptoms or risks identified at this time. - Family history:: not pertinent. Screenin:00 Abuse screen: Denies threats or abuse. Denies injuries from another. Nutritional aj1 screening: No deficits noted. Tuberculosis screening: No symptoms or risk factors identified. Assessment: 15:00 General: Appears in no apparent distress. uncomfortable, Behavior is cooperative, aj1 anxious. Pain: Complains of pain in chest and abdomen. Neuro: Level of Consciousness is awake, alert, obeys commands. Cardiovascular: Patient's skin is warm and dry. Respiratory: Airway is patent Respiratory effort is even, unlabored, Respiratory pattern is regular, symmetrical. GI: Abdomen is round non-distended, Bowel sounds. : No signs and/or symptoms were reported regarding the genitourinary system. EENT: No signs and/or symptoms were reported regarding the EENT system. Derm: No signs and/or symptoms reported regarding the dermatologic system. Skin is pink, warm \T\ dry. normal. Musculoskeletal: No signs and/or symptoms reported regarding the musculoskeletal system. Circulation, motion, and sensation intact. Vital Signs: 13:12 BP 113 / 60; Pulse 94; Resp 18; Temp 98; Pulse Ox 99% ; Weight 104.33 kg; Height 5 ft. sv 4 in. (162.56 cm); Pain 8/10; 13:12 Body Mass Index 39.48 (104.33 kg, 162.56 cm) sv ED Course: 13:02 Patient arrived in ED. sb2 13:02 Fatimah Walker MD is Private Physician. sb2 13:12 Triage completed. sv 13:13 Arm band placed on. sv 14:49 Saúl Mendez MD is Attending Physician. martina 14:58 Fredo Gonzalez RN is Primary Nurse. la1 15:00 Primary Nurse role handed off by Fredo Gonzalez RN aj1 15:00 Evelin Ivan RN is Primary Nurse. aj1 15:00 Patient has correct armband on for positive identification. Bed in low position. Call aj1 light in reach. Side rails up X 1. 15:00 No provider procedures requiring assistance completed. aj1 15:15 Fatimah Walker MD is Referral Physician. martina 15:16 Flynn Licea MD is Referral Physician. martina 15:39 Patient did not have IV access during this emergency room visit. ss Administered Medications: No medications were administered Outcome: 15:16 Discharge ordered by . [facility] 15:39 Discharged to home ambulatory. ss 15:39 Condition: good 15:39 Discharge instructions given to patient, Instructed on discharge instructions, follow up and referral plans. medication usage, Demonstrated understanding of instructions, follow-up care, medications, Prescriptions given X 2. 15:39 Patient left the ED. ss Signatures: Evelin Ivan RN RN aj1 Alicia Cabello RN Saúl Bennett MD MD cha Smirch, Shelby, RN RN Fredo Gonzalez RN RN la1 Billeau, Sheri sb2
--- NOTE | 2018-07-13 15:17 | EDPHYS ---
Physician Documentation [facility] Name: Ferny Zaragoza Age: 23 yrs Sex: Female : 1995 Arrival Date: 07/13/2018 Time: 13:02 Bed 6 Private MD: Fatimah Walker K ED Physician Saúl Mendez HPI: 07/13 15:09 This 23 yrs old Female presents to ER via Ambulatory with complaints of martina Anxiety - PAIN. 15:09 The patient presents to the emergency department with anxiety, depression, over money, martina over a relationship, over work. Onset: The symptoms/episode began/occurred 2 day(s) ago. Past psychiatric history: Prior diagnosis: depression. Associated signs and symptoms: Pertinent positives; anxiety. Severity of symptoms: At their worst the symptoms were mild moderate in the emergency department the symptoms have improved mildly, moderately. The patient has experienced similar episodes in the past. Historical: - Allergies: 13:12 No Known Allergies; sv - PMHx: 13:12 Depression; sv - PSHx: 13:12 eye sx; sv - Immunization history:: Flu vaccine is not up to date. - Social history:: Smoking status: Patient uses tobacco products, denies chronic smoking, but will smoke occasionally. - Ebola Screening: : No symptoms or risks identified at this time. - Family history:: not pertinent. ROS: 15:09 Constitutional: Negative for fever, chills, and weight loss, Eyes: Negative for injury, martina pain, redness, and discharge, ENT: Negative for injury, pain, and discharge, Neck: Negative for injury, pain, and swelling, Cardiovascular: Negative for chest pain, palpitations, and edema, Respiratory: Negative for shortness of breath, cough, wheezing, and pleuritic chest pain, Abdomen/GI: Negative for abdominal pain, nausea, vomiting, diarrhea, and constipation, Back: Negative for injury and pain, : Negative for injury, bleeding, discharge, and swelling, MS/Extremity: Negative for injury and deformity, Skin: Negative for injury, rash, and discoloration, Psych: Negative for depression, anxiety, suicide ideation, homicidal ideation, and hallucinations, Allergy/Immunology: Negative for hives, rash, and allergies, Endocrine: Negative for neck swelling, polydipsia, polyuria, polyphagia, and marked weight changes, Hematologic/Lymphatic: Negative for swollen nodes, abnormal bleeding, and unusual bruising. 15:09 Psych: Positive for anxiety, depression. Exam: 15:09 Constitutional: This is a well developed, well nourished patient who is awake, alert, martina and in no acute distress. Head/Face: Normocephalic, atraumatic. Eyes: Pupils equal round and reactive to light, extra-ocular motions intact. Lids and lashes normal. Conjunctiva and sclera are non-icteric and not injected. Cornea within normal limits. Periorbital areas with no swelling, redness, or edema. ENT: Nares patent. No nasal discharge, no septal abnormalities noted. Tympanic membranes are normal and external auditory canals are clear. Oropharynx with no redness, swelling, or masses, exudates, or evidence of obstruction, uvula midline. Mucous membranes moist. Neck: Trachea midline, no thyromegaly or masses palpated, and no cervical lymphadenopathy. Supple, full range of motion without nuchal rigidity, or vertebral point tenderness. No Meningismus. Chest/axilla: Normal chest wall appearance and motion. Nontender with no deformity. No lesions are appreciated. Cardiovascular: Regular rate and rhythm with a normal S1 and S2. No gallops, murmurs, or rubs. Normal PMI, no JVD. No pulse deficits. Respiratory: Lungs have equal breath sounds bilaterally, clear to auscultation and percussion. No rales, rhonchi or wheezes noted. No increased work of breathing, no retractions or nasal flaring. Back: No spinal tenderness. No costovertebral tenderness. Full range of motion. Skin: Warm, dry with normal turgor. Normal color with no rashes, no lesions, and no evidence of cellulitis. MS/ Extremity: Pulses equal, no cyanosis. Neurovascular intact. Full, normal range of motion. Neuro: Awake and alert, GCS 15, oriented to person, place, time, and situation. Cranial nerves II-XII grossly intact. Motor strength 5/5 in all extremities. Sensory grossly intact. Cerebellar exam normal. Normal gait. 15:09 Psych: Behavior/mood is anxious, depressed, Affect is animated, Oriented to person, place, time, Patient has no thoughts/intents to harm self or others. Judgement / Insight is normal. Memory is normal. Delusions/hallucinations are not present. Vital Signs: 13:12 BP 113 / 60; Pulse 94; Resp 18; Temp 98; Pulse Ox 99% ; Weight 104.33 kg; Height 5 ft. sv 4 in. (162.56 cm); Pain 8/10; 13:12 Body Mass Index 39.48 (104.33 kg, 162.56 cm) sv MDM: 14:49 Patient medically screened. [facility] 15:26 Data reviewed: vital signs, nurses notes. [facility] Administered Medications: No medications were administered Disposition: 07/13/18 15:16 Discharged to Home. Impression: Anxiety disorder, unspecified, Major depressive disorder, recurrent - histiory. - Condition is Stable. - Discharge Instructions: Panic Attacks, Panic Attacks, [id number]. - Prescriptions for hydroxyzine HCl 25 mg Oral tablet - take 1 tablet by ORAL route 4 times per day as needed; 30 tablet. Xanax 0.5 mg Oral Tablet - take 1 tablet by ORAL route every 8 hours As needed; 20 tablet. - Medication Reconciliation Form, Thank You Letter, Antibiotic Education, Prescription Opioid Use form. - Follow up: Fatimah Walker MD; When: 2 - 3 days; Reason: Recheck today's complaints, Continuance of care, Re-evaluation by your physician. Follow up: Flnyn Licea MD; When: 2 - 3 days; Reason: Recheck today's complaints, Re-evaluation by your physician. - Problem is new. - Symptoms have improved. Signatures: Alicia Cabello, BETH RN Saúl Diamond MD MD cha Smirch, Shelby, RN RN ss Corrections: (The following items were deleted from the chart) 15:16 15:16 07/13/2018 15:16 Discharged to Home. Impression: Anxiety disorder, unspecified; martina Major depressive disorder, recurrent - histiory. Condition is Stable. Forms are Medication Reconciliation Form, Thank You Letter, Antibiotic Education, Prescription Opioid Use. Follow up: Fatimah Walker; When: 2 - 3 days; Reason: Recheck today's complaints, Continuance of care, Re-evaluation by your physician. Problem is new. Symptoms have improved. martina 15:39 15:16 07/13/2018 15:16 Discharged to Home. Impression: Anxiety disorder, unspecified; ss Major depressive disorder, recurrent - histiory. Condition is Stable. Forms are Medication Reconciliation Form, Thank You Letter, Antibiotic Education, Prescription Opioid Use. Follow up: Fatimah Walker; When: 2 - 3 days; Reason: Recheck today's complaints, Continuance of care, Re-evaluation by your physician. Follow up: Flynn Licea; When: 2 - 3 days; Reason: Recheck today's complaints, Re-evaluation by your physician. Problem is new. Symptoms have improved. matrina
== END 2018-07-13 15:39 | disposition home or self-care (01) ==
LOC: ER 12:59
DX: F33.9 Major depressive disorder, recurrent, unspecified (principal); Z72.0 Tobacco use
CPT/HCPCS: 99282

== ENCOUNTER 2019-11-04 07:09 | Emergency (ER) | payer SELFPAY ==
--- NOTE | 2019-11-04 07:35 | ER ---
Nurse's Notes [facility] Name: Ferny Zaragoza Age: 24 yrs Sex: Female : 1995 Arrival Date: 11/04/2019 Time: 07:13 Bed 5 Private MD: Kiran Walker Diagnosis: Rash and other nonspecific skin eruption Presentation: 11/03 07:22 Chief complaint: Patient states: "I have parasites coming out of my body and eyes. I sv have bumps all over my body.". Coronavirus screen: Proceed with normal triage. Ebola Screen: No symptoms or risks identified at this time. Initial Sepsis Screen: Does the patient meet any 2 criteria? HR > 90 bpm. No. Patient's initial sepsis screen is negative. Does the patient have a suspected source of infection? No. Patient's initial sepsis screen is negative. Risk Assessment: Do you want to hurt yourself or someone else? Patient reports no desire to harm self or others. Onset of symptoms is unknown. 07:22 Method Of Arrival: Ambulatory sv 07:22 Acuity: WILMAR 5 sv Triage Assessment: 07:25 General: Appears in no apparent distress. comfortable, well developed, Behavior is sv calm, cooperative, appropriate for age. Pain: Denies pain. Neuro: Level of Consciousness is awake, alert, obeys commands, Oriented to person, place, time, situation, Moves all extremities. Full function Gait is steady, Speech is normal. Respiratory: Respiratory effort is even, unlabored, Respiratory pattern is regular, symmetrical. Derm: Skin is pink, warm \\T\\ dry. bites noted to LE. Musculoskeletal: Range of motion: intact in all extremities. Historical: - Allergies: 07:25 No Known Allergies; sv - PMHx: 07:25 Depression; sv - PSHx: 07:25 eye sx; sv - Immunization history:: Adult Immunizations up to date. - Social history:: Smoking status: Patient reports the use of cigarette tobacco products, denies chronic smoking, but will smoke occasionally, Patient/guardian denies using alcohol, street drugs, IV drugs. Screenin:26 Abuse screen: Denies threats or abuse. Denies injuries from another. Nutritional sv screening: No deficits noted. Tuberculosis screening: No symptoms or risk factors identified. Fall Risk None identified. Assessment: 07:41 Reassessment: Patient appears in no apparent distress at this time. No changes from sv previously documented assessment. Patient and/or family updated on plan of care and expected duration. Pain level reassessed. Patient is alert, oriented x 3, equal unlabored respirations, skin warm/dry/pink. Vital Signs: 07:22 BP 124 / 83; Pulse 107; Resp 18; Temp 97.7; Pulse Ox 99% ; Height 5 ft. 3 in. (160.02 sv cm); Pain 0/10; ED Course: 07:13 Patient arrived in ED. am2 07:13 Fatimah Walker MD is Private Physician. am2 07:14 Kiran Walker is Private Physician. am2 07:19 [facility] pm1 07:19 Saúl Mendez MD is Attending Physician. pm1 07:22 Alicia Cabello, BETH is Primary Nurse. sv 07:24 Triage completed. sv 07:25 Arm band placed on. sv 07:26 Patient has correct armband on for positive identification. Bed in low position. Call sv light in reach. Pulse ox on. NIBP on. Door closed. Head of bed elevated. 07:27 Nurse Practitioner and/or Physician Light Rail Operator to see patient. sv 07:41 No provider procedures requiring assistance completed. Patient did not have IV access sv during this emergency room visit. Administered Medications: No medications were administered Outcome: 07:35 Discharge ordered by . pm1 07:41 Discharged to home ambulatory. sv 07:41 Condition: stable 07:41 Discharge instructions given to patient, Instructed on discharge instructions, follow up and referral plans. medication usage, Demonstrated understanding of instructions, follow-up care, medications, Prescriptions given X 2. 07:41 Patient left the ED. sv Signatures: Alicia Cabello, BETH RN Milton Meneses NP [employer] WORK[employer] pm1 Prema Blanc am2
--- NOTE | 2019-11-04 07:35 | EDPHYS ---
Physician Documentation [facility] Name: Ferny Zaragoza Age: 24 yrs Sex: Female : 1995 Arrival Date: 11/04/2019 Time: 07:13 Bed 5 Private MD: Kiran Walker ED Physician Saúl Mendez HPI: 11/03 07:33 This 24 yrs old Female presents to ER via Ambulatory with complaints of pm1 parasites. 07:33 The patient's rash thought to be caused by parasites and worms. The rash is located on pm1 the body diffusely. Onset: The symptoms/episode began/occurred yesterday. Associated signs and symptoms: Pertinent positives: itching, Pertinent negatives: fever, Pain wheezing. Treatment given at home: None. The patient has not experienced similar symptoms in the past. It is unknown whether or not the patient has recently seen a physician. Historical: - Allergies: 07:25 No Known Allergies; sv - PMHx: 07:25 Depression; sv - PSHx: 07:25 eye sx; sv - Immunization history:: Adult Immunizations up to date. - Social history:: Smoking status: Patient reports the use of cigarette tobacco products, denies chronic smoking, but will smoke occasionally, Patient/guardian denies using alcohol, street drugs, IV drugs. ROS: 07:33 Constitutional: Negative for fever, chills, and weight loss, Cardiovascular: Negative pm1 for chest pain, palpitations, and edema, Respiratory: Negative for shortness of breath, cough, wheezing, and pleuritic chest pain, Abdomen/GI: Negative for abdominal pain, nausea, vomiting, diarrhea, and constipation, Back: Negative for injury and pain, MS/Extremity: Negative for injury and deformity. 07:33 Neuro: Negative for headache, weakness, numbness, tingling, and seizure. 07:33 Skin: Positive for rash, diffusely, parasites and worms coming out of every part of her body, Negative for abrasions, cellulitis. Exam: 07:33 Constitutional: This is a well developed, well nourished patient who is awake, alert, pm1 and in no acute distress. Head/Face: Normocephalic, atraumatic. 07:33 Chest/axilla: Normal chest wall appearance and motion. Nontender with no deformity. No lesions are appreciated. 07:33 Respiratory: Lungs have equal breath sounds bilaterally, clear to auscultation and percussion. No rales, rhonchi or wheezes noted. No increased work of breathing, no retractions or nasal flaring. Abdomen/GI: Soft, non-tender, with normal bowel sounds. No distension or tympany. No guarding or rebound. No evidence of tenderness throughout. Back: No spinal tenderness. No costovertebral tenderness. Full range of motion. 07:33 Eyes: Exam is negative for acute changes, drainage, erythema, icterus, tearing, Extraocular movements: intact throughout, Conjunctiva: exudate, injected. 07:33 ENT: External ear(s): are unremarkable, Ear canal(s): are normal, TM's: are normal. 07:33 Skin: Appearance: normal except for affected area, multiple small abrasions present to bilateral feet and ankles, back and arms. 07:33 Neuro: Exam negative for acute changes, Orientation: is normal, Motor: is normal, moves all fours, Gait: is steady, at a normal pace, without difficulty. Vital Signs: 07:22 BP 124 / 83; Pulse 107; Resp 18; Temp 97.7; Pulse Ox 99% ; Height 5 ft. 3 in. (160.02 sv cm); Pain 0/10; MDM: 07:19 Patient medically screened. pm1 07:33 Data reviewed: vital signs. Data interpreted: Pulse oximetry: on room air is 99 %. pm1 Interpretation: normal. Counseling: I had a detailed discussion with the patient and/or guardian regarding: the historical points, exam findings, and any diagnostic results supporting the discharge/admit diagnosis, the need for outpatient follow up, to return to the emergency department if symptoms worsen or persist or if there are any questions or concerns that arise at home. Administered Medications: No medications were administered Disposition: 13:19 Co-signature as Attending Physician, Saúl Mendez MD I agree with the assessment and martina plan of care. 13:20 Co-signature as Attending Physician, Saúl Mendez MD I agree with the assessment and martina plan of care. Disposition: 11/04/19 07:35 Discharged to Home. Impression: Rash and other nonspecific skin eruption. - Condition is Stable. - Discharge Instructions: Rash. - Prescriptions for Bactroban 2 % Topical Ointment - Apply to affected area 1 application by TOPICAL route every 12 hours; 30 gram. Doxycycline Hyclate 100 mg Oral Tablet - take 1 tablet by ORAL route every 12 hours; 20 tablet. - Medication Reconciliation Form, Thank You Letter, Antibiotic Education, Prescription Opioid Use form. - Follow up: Emergency Department; When: As needed; Reason: Worsening of condition. Follow up: Private Physician; When: 2 - 3 days; Reason: Recheck today's complaints, Continuance of care, Re-evaluation by your physician. - Problem is new. - Symptoms have improved. Signatures: Alicia Cabello RN RN sv Saúl Mendez MD MD cha Marinas, Patrick, [employer] COMPENSATION COORDINATOR pm1 Corrections: (The following items were deleted from the chart) 07:41 07:35 11/04/2019 07:35 Discharged to Home. Impression: Rash and other nonspecific skin sv eruption. Condition is Stable. Forms are Medication Reconciliation Form, Thank You Letter, Antibiotic Education, Prescription Opioid Use. Follow up: Emergency Department; When: As needed; Reason: Worsening of condition. Follow up: Private Physician; When: 2 - 3 days; Reason: Recheck today's complaints, Continuance of care, Re-evaluation by your physician. Problem is new. Symptoms have improved. pm1
[2019-11-04 07:53] VITALS: BP 124/83; TEMP 97.7; O2SAT 99
== END 2019-11-04 07:41 | disposition home or self-care (01) ==
LOC: ER 07:09
DX: R21 Rash and other nonspecific skin eruption (principal); F17.210 Nicotine dependence, cigarettes, uncomplicated
CPT/HCPCS: 99283

== ENCOUNTER 2024-07-05 17:15 | Emergency (ER) | payer OTHER ==
[2024-07-05 17:57] LABS: Specific Gravity 1.018 (1.005-1.030)
[2024-07-05 17:59] LABS: Specific Gravity 1.018 (1.005-1.030); Sqamous Epithelial 20-50 /HPF (None Seen); Urine Bacteria 20-50 /HPF (<20); Urine Bilirubin NEGATIVE (Negative); Urine Blood Negative (Negative); Urine Clarity Extremely Turbid (Clear); Urine Color Yellow (Yellow); Urine Culture Reflex Order NOT NEEDED; Urine Glucose NEGATIVE (Negative); Urine Ketones NEGATIVE (Negative); Urine Micro Reflex YN NO BILL MICROSCOPIC; Urine Mucus Slight /HPF (None Seen); Urine Nitrite 2+ (Negative); Urine Protein TRACE (Negative); Urine RBC <5 /HPF (None Seen); Urine Urobilinogen 1+ (Normal); Urine pH 7.5 (5.0-7.0)
[2024-07-05 18:06] LABS: Barbiturates NEGATIVE (NEGATIVE); Benzodiazepines NEGATIVE (NEGATIVE); Cocaine NEGATIVE (NEGATIVE); METHAMPHETAM NEGATIVE (NEGATIVE); Methadone NEGATIVE (NEGATIVE); Opiates NEGATIVE (NEGATIVE); Phencyclidine NEGATIVE (NEGATIVE); THC Cannibis NEGATIVE (NEGATIVE)
--- NOTE | 2024-07-05 18:42 | ER ---
Nurse's Notes [facility] Name: Ferny Zaragoza Age: 29 yrs Sex: Female : 1995 Arrival Date: 07/05/2024 Time: 17:15 Bed 13 Private MD: Diagnosis: UTI/ Urinary tract infection, site not specified;Cellulitis of left external ear;Cellulitis of face-nose Presentation: 07/05 17:37 Chief complaint: Patient states: nasal congestion that started about 2 weeks ago. Sores me1 to right nare inside and on the right side of her nose and on both ears. Coronavirus screen: Vaccine status: Patient reports receiving the 2nd dose of the covid vaccine. Ebola Screen: No symptoms or risks identified at this time. Initial Sepsis Screen: Does the patient meet any 2 criteria? No. Patient's initial sepsis screen is negative. Risk Assessment: Do you want to hurt yourself or someone else? Patient reports no desire to harm self or others. Onset of symptoms is unknown. 17:37 Method Of Arrival: Ambulatory me1 17:37 Acuity: WILMAR 4 me1 17:40 Initial Sepsis Screen: Does the patient have a suspected source of infection? No. rs5 Patient's initial sepsis screen is negative. Triage Assessment: 17:39 General: Appears unkempt, well developed, Behavior is cooperative, appropriate for age, me1 anxious. Pain: Complains of pain in right ear, nose and left ear Pain does not radiate. Pain currently is 7 out of 10 on a pain scale. Quality of pain is described as sharp, Pain began about 2 weeks ago Is continuous. EENT: Pinna multiple small sores to both ears. Nares sore on right side. Neuro: Level of Consciousness is awake, alert, obeys commands, Oriented to person, place, time, situation, Appropriate for age. Cardiovascular: Patient's skin is warm and dry. Respiratory: Airway is patent Respiratory effort is even, unlabored, Respiratory pattern is regular, symmetrical. GI: No signs and/or symptoms were reported involving the gastrointestinal system. : No signs and/or symptoms were reported regarding the genitourinary system. Derm: Wound noted right ear, nose and left ear Wound is small dry scaly wounds to right side of nose and bilateral ears. Musculoskeletal: No signs and/or symptoms reported regarding the musculoskeletal system. Historical: - Allergies: 17:39 PENICILLINS; me1 - PMHx: 17:39 Depression; me1 - PSHx: 17:39 Cholecystectomy; me1 - Immunization history:: Adult Immunizations up to date. - Infectious Disease History:: Denies. - Social history:: Smoking status: Patient reports the use of cigarette tobacco products, smokes one-half pack cigarettes per day, Reported history of juuling and/or vaping. Screenin:35 [facility] ED Fall Risk Assessment (Adult) History of falling in the last 3 months, rs5 including since admission No falls in past 3 months (0 pts) Confusion or Disorientation No (0 pts) Intoxicated or Sedated No (0 pts) Impaired Gait No (0 pts) Mobility Assist Device Used No (0 pt) Altered Elimination No (0 pt) Score/Fall Risk Level 0 - 2 = Low Risk Oriented to surroundings, Maintained a safe environment. Abuse screen: Denies threats or abuse. Nutritional screening: No deficits noted. Tuberculosis screening: No symptoms or risk factors identified. Assessment: 17:35 General: Appears in no apparent distress. uncomfortable, Behavior is calm, cooperative. rs5 Pain: Denies pain. Neuro: Level of Consciousness is awake, alert, obeys commands, Oriented to person, place, time, situation. Cardiovascular: Patient's skin is warm and dry. Respiratory: Airway is patent Respiratory effort is even, unlabored, Respiratory pattern is regular, symmetrical, Breath sounds are clear bilaterally. GI: Abdomen is round non-distended, Abd is soft and non tender X 4 quads. : Reports urinary frequency. EENT: Throat pt reports throat soreness and nasal irritation . 17:35 Derm: Skin is intact, Skin is pink, warm \T\ dry. rs5 18:37 Reassessment: Patient and/or family updated on plan of care and expected duration. Pain rs5 level reassessed. Patient is alert, oriented x 3, equal unlabored respirations, skin warm/dry/pink. 18:44 Reassessment: Patient and/or family updated on plan of care and expected duration. Pain rs5 level reassessed. Patient is alert, oriented x 3, equal unlabored respirations, skin warm/dry/pink. Vital Signs: 17:37 BP 117 / 84; Pulse 77; Resp 18; Temp 97.9; Pulse Ox 100% ; Weight 68.04 kg; Height 5 me1 ft. 3 in. ; Pain 7/10; 18:44 BP 125 / 80; Pulse 74; Resp 17; Pulse Ox 98% on R/A; rs5 17:37 Body Mass Index 26.57 (68.04 kg, 160.02 cm) me1 17:37 Pain Scale: [place] [facility] [place] Course: 17:21 Patient arrived in ED. ra3 17:22 Renetta Tidwell PA-C is PHCP. sb4 17:22 Tess Licea MD is Attending Physician. sb4 17:35 Patient has correct armband on for positive identification. Placed in gown. Bed in low rs5 position. Call light in reach. Side rails up X2. 17:39 Triage completed. me1 17:39 Arm band placed on Patient placed in an exam room. me1 17:45 Hamlet Loja, RN is Primary Nurse. rs5 18:44 No provider procedures requiring assistance completed. Patient did not have IV access rs5 during this emergency room visit. Administered Medications: No medications were administered Medication: 18:45 VIS not applicable for this client. rs5 Outcome: 18:41 Discharge ordered by MD. sb4 19:05 Discharged to home ambulatory, rs5 19:05 Condition: stable 19:05 Discharge instructions given to patient, family, Instructed on discharge instructions, follow up and referral plans. medication usage, Demonstrated understanding of instructions, follow-up care, medications, Prescriptions given X 1, 19:06 Patient left the ED. rs5 Signatures: Renetta Tidwell PA-C PA-C sb4 Hamlet Loja, RN RN rs5 Peg Landers RN RN id1 Ngozi Knight ra3
--- NOTE | 2024-07-05 18:42 | EDPHYS ---
Physician Documentation [facility] Name: Ferny Zaragoza Age: 29 yrs Sex: Female : 1995 Arrival Date: 07/05/2024 Time: 17:15 Bed 13 Private MD: ED Physician Tess Licea HPI: 07/05 20:01 This 29 yrs old Female presents to ER via Ambulatory with complaints of skin infections.sb4 20:03 patient presents with concerns of skin infections on her nose, right ear, and left ear. sb4 she also reports sore throat and is concerned that she may be . she states that her nose ring and earrings have gotten infected somehow. 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 Historical: - Allergies: 17:39 PENICILLINS; me1 - PMHx: 17:39 Depression; me1 - PSHx: 17:39 Cholecystectomy; me1 - Immunization history:: Adult Immunizations up to date. - Infectious Disease History:: Denies. - Social history:: Smoking status: Patient reports the use of cigarette tobacco products, smokes one-half pack cigarettes per day, Reported history of juuling and/or vaping. ROS: 20:03 Constitutional: Negative for fever, chills, and weight loss, sb4 20:03 ENT: Positive for sore throat, 20:03 : Positive for missed period, 20:03 Skin: Positive for cellulitis, of the left ear and nose and right ear, 20:03 All other systems are negative, Exam: 20:03 Head/Face: Normocephalic, atraumatic. Eyes: Extra-ocular motions intact. Periorbital sb4 areas with no swelling, redness, or edema. ENT: Mucous membranes moist. Respiratory: No increased work of breathing, no retractions or nasal flaring. 20:03 Constitutional: The patient appears alert, awake, anxious, 20:03 Skin: cellulitis, that is mild, on the left ear and nose, hematoma with surrounding ecchymosis right AC. Vital Signs: 17:37 BP 117 / 84; Pulse 77; Resp 18; Temp 97.9; Pulse Ox 100% ; Weight 68.04 kg; Height 5 me1 ft. 3 in. ; Pain 7/10; 18:44 BP 125 / 80; Pulse 74; Resp 17; Pulse Ox 98% on R/A; rs5 17:37 Body Mass Index 26.57 (68.04 kg, 160.02 cm) me1 17:37 Pain Scale: Adult me1 MDM: 17:31 Medical Screening Exam initiated sb4 20:06 Data reviewed: vital signs, nurses notes, lab test result(s), and as a result, I will sb4 discharge patient. Counseling: I had a detailed discussion with the patient and/or guardian regarding the historical points, exam findings, and any diagnostic results supporting the discharge/admit diagnosis, lab results, to return to the emergency department if symptoms worsen or persist or if there are any questions or concerns that arise at home. 07/05 17:42 Order name: UAM; Complete Time: 18:00 sb4 07/05 17:42 Order name: Test, Urine; Complete Time: 18:00 sb4 07/05 17:42 Order name: UDS; Complete Time: 18:06 sb4 Administered Medications: No medications were administered Disposition Summary: 07/05/24 18:41 Discharge Ordered Notes: Location: Home sb4 Problem: new sb4 Symptoms: are unchanged sb4 Condition: Stable sb4 Diagnosis - UTI/ Urinary tract infection, site not specified sb4 - Cellulitis of left external ear sb4 - Cellulitis of face - nose sb4 Followup: sb4 - With: Emergency Department - When: As needed - Reason: Fever > 102 F, Worsening of condition Discharge Instructions: - Discharge Summary Sheet sb4 - Cellulitis, Adult sb4 - Urinary Tract Infection, Adult, [id number] sb4 Forms: - Antibiotic Education sb4 - Patient Portal Instructions sb4 - Leadership Thank You Letter sb4 Prescriptions: - Bactrim DS 800-160 mg Oral Tablet - take 1 tablet ORAL route every 12 hours for 10 days; 20 tablet; Refills: 0, sb4 Product Selection Permitted Signatures: Dispatcher [employer] Renetta العراقي PA-C PA-C sb4 Peg Landers, RN RN me1
[2024-07-05 22:28] VITALS: TEMP 97.9
[2024-07-05 22:29] VITALS: BP 125/80; O2SAT 98
== END 2024-07-05 19:06 | disposition home or self-care (01) ==
LOC: ER 17:15
DX: J34.0 Abscess, furuncle and carbuncle of nose (principal); H60.12 Cellulitis of left external ear; N39.0 Urinary tract infection, site not specified; F32.A Depression, unspecified; F17.210 Nicotine dependence, cigarettes, uncomplicated; Z88.0 Allergy status to penicillin
CPT/HCPCS: 80307; 81001; 81025; 99283